=== PATIENT | male | born 1955 | race Two or more races ===

== ENCOUNTER → 2018-06-29 | Outpatient (CLI) | payer OTHER | END | disposition home or self-care (01) | LOC: EKG 13:22 | DX: R10.9 Unspecified abdominal pain (principal); I10 Essential (primary) hypertension; Z01.810 Encounter for preprocedural cardiovascular examination ==

== ENCOUNTER 2018-07-04 14:30 | Outpatient (CLI) | payer OTHER ==
[2018-07-05] MEDS ORDERED: NEURONTIN300 MG PO (15:07)
[2018-07-05] MEDS ORDERED: ZOFRAN4 MG PO (15:07)
[2018-07-05] MEDS ORDERED: TYLENOL EXTRA500 MG PO (15:07)
[2018-07-05] MEDS ORDERED: MIRALAX17 GM PO (15:07)
[2018-07-05] MEDS ORDERED: TRAMADOL HCL50 MG PO (15:07)
== END 2018-07-04 17:00 | disposition home or self-care (01) ==
LOC: MRI 14:30
DX: K80.50 Calculus of bile duct without cholangitis or cholecystitis without obstruction (principal)
CPT/HCPCS: 74181

== ENCOUNTER 2018-07-05 09:49 | Day surgery (SDC) | payer OTHER ==
[2018-07-05] MEDS ORDERED: TYLENOL EXTRA500 MG PO (15:07)
[2018-07-05] MEDS ORDERED: TRAMADOL HCL50 MG PO (15:07)
[2018-07-05] MEDS ORDERED: NEURONTIN300 MG PO (15:07)
[2018-07-05] MEDS ORDERED: MIRALAX17 GM PO (15:07)
[2018-07-05] MEDS ORDERED: ZOFRAN4 MG PO (15:07)
== END 2018-07-05 17:00 | disposition home or self-care (01) ==
LOC: CIR.AMB 09:49
DX: K80.10 Calculus of gallbladder with chronic cholecystitis without obstruction (principal); K42.9 Umbilical hernia without obstruction or gangrene

== ENCOUNTER 2018-11-26 07:28 | Outpatient (CLI) | payer OTHER ==
[~2018-11-26 07:28] MED LIST: MIRALAX17 GM PO; NEURONTIN300 MG PO; TRAMADOL HCL50 MG PO; TYLENOL EXTRA500 MG PO; ZOFRAN4 MG PO
== END 2018-11-26 07:32 | disposition home or self-care (01) ==
LOC: SONOGRAMA 07:28
DX: E04.2 Nontoxic multinodular goiter (principal)